=== PATIENT | male | born 1945 | race Caucasian/White ===

== ENCOUNTER → 2023-04-15 14:35 | Outpatient (CLI) | payer MEDICARE, SELFPAY ==
[2023-04-15 17:26] LABS: BUN Creatinine Ratio 32.4 (6-22); Blood Urea Nitrogen 33 mg/dL (9-20); Calcium 9.5 mg/dL (8.4-10.2); Carbon Dioxide 28 mmol/L (22-32); Chloride 103 mmol/L (98-107); Estimated Glomerular Filt Rate > 60 mL/min (>60); Glucose 93 mg/dL (80-110); HEMOLYSIS < 15 (0-50); Potassium 4.2 mmol/L (3.4-5.1); Sodium 139 mmol/L (137-145)
[2023-04-15 17:29] LABS: Add Manual Diff / Slide Review NO; Basophils Absolute Auto 100 /uL (0-100); Basophils Percent Auto 2.4 % (0-2); Eosinophils Absolute Auto 100 /uL (0-450); Eosinophils Percent Auto 2.7 % (2-4); Hematocrit 44.4 % (41-53); Hemoglobin 14.8 g/dL (13.5-17.5); Lymphocytes Absolute Auto 1500 /uL (1100-4500); Mean Corpuscular HGB Conc 33.4 % (30-36); Mean Corpuscular Volume 92.9 fL (80-100); Monocytes Absolute Auto 700 /uL (0-900); Monocytes Percent Auto 14.4 % (3-14); Neutrophils Absolute Auto 2300 /uL (1500-7000); Neutrophils Percent Auto 48.5 % (50-75); Platelet Count 242 X10^3/uL (150-400); Red Blood Cell Count 4.77 X10^6/uL (4.5-5.9); Red Cell Distribution Width 14.5 % (11.6-14.8); White Blood Cell Count 4.8 X10^3/uL (4.5-11.0)
== END ==
PROVIDERS: PCP Family Medicine; Referring Provider Nurse Practitioner Acute Care; Visit Provider Nurse Practitioner Acute Care
DX: I42.9 Cardiomyopathy, unspecified (principal)
CPT/HCPCS: 36415; 80048; 85025

== ENCOUNTER → 2024-04-23 13:54 | Outpatient (CLI) | payer OTHER, SELFPAY ==
--- NOTE | 2024-04-23 13:58 | DI.ECHO.S_ITS ---
[facility]---------+ [facility] : : [address] : : [place] : : [id number] : : Phone: [phone] Echocardiogram Report + + :Name: REILLY GRESHMA Study Date: 04/23/2024 Height: 71 in : :Hospital ReadingLocation: Weight: 155 lb : : Gender: Male BSA: 1.9 m2 : :: 1945 Age: 78 yrs BP: 101/67 mmHg: :Reason For Study: ISCHEMIC HEART DISEASE : :Ordering Physician: CARLOS, : :RAE Performed By: Jaysno Jain : :Referring: RAE GONZALEZ : + + Interpretation Summary The left ventricle is mildly dilated. The ejection fraction is estimated to be 15-20%. Diastolic function could not be accurately assessed due to unobtainable data. The left atrium is mildly dilated. The right ventricle is mildly dilated. Right ventricular systolic function is moderately reduced. There is mild to moderate mitral regurgitation. There is mild tricuspid regurgitation. The right ventricular systolic pressure is estimated to be at least 28 mmHg based on an estimated right atrial pressure of 3 mm Hg. Compared to the prior study dated 06/04/2023, no significant change other than a decrease in the left ventricular end-diastolic diameter. Procedure: A two-dimensional transthoracic echocardiogram with color flow and Doppler was performed. A contrast injection of Definity was performed to improve assessment of LV function. The study quality was technically good. Comparison is made with the echocardiogram of 06/04/2023. The patient was in normal sinus rhythm during the exam. Left Ventricle: There is normal left ventricular wall thickness. The left ventricle is mildly dilated. There is no ventricular septal defect visualized. The ejection fraction is estimated to be 15-20%. There is severe global hypokinesis of the left ventricle. Diastolic function could not be accurately assessed due to unobtainable data. Right Ventricle: The right ventricle is mildly dilated. There is an ICD wire in the RV. Right ventricular systolic function is moderately reduced. Atria: The left atrium is mildly dilated. Right atrial size is normal. There is no Doppler evidence for an atrial septal defect. Mitral Valve: The mitral valve is normal. There is mild to moderate mitral regurgitation. Aortic Valve: The aortic valve is trileaflet. The aortic valve opens well. There is no aortic valve stenosis. No aortic regurgitation is present. Tricuspid Valve: The tricuspid valve is normal. There is mild tricuspid regurgitation. The right ventricular systolic pressure is estimated to be at least 28 mmHg based on an estimated right atrial pressure of 3 mm Hg. Pulmonic Valve: The pulmonic valve is normal in structure and function. There is trace pulmonic regurgitation. Great Vessels: The aortic root is normal size. The dimensions of the ascending aorta are normal. The pulmonary artery is normal size. The IVC is of normal diameter and collapses greater than 50% with a sniff. This suggests a low right atrial pressure of 3 mm Hg. Pericardium/ Pleura There is no pericardial effusion. There is no pleural effusion. MMode/2D Measurements & Calculations LVIDd: 5.9 cm LVOT diam: 2.3 cm LVIDs: 5.1 cm Ao root diam: 3.2 cm FS: 12.8 % asc Aorta Diam: 2.9 cm IVSd: 1.1 cm LVPWd: 0.89 cm LV mg. diameter/BSA (cm/m^2): 3.1 LV sys. diameter/BSA (cm/m^2): 2.7 LA A2 area: 23.8 cm2 RA long axis: 4.6 cm LA A4 area: 22.8 cm2 RA area: 14.8 cm2 LA length (vol): 6.6 cm RA vol: 40.3 ml LA vol: 69.5 ml RA : 21.3 ml/m2 LA vol index: 36.8 ml/m2 IVC diam: 1.2 cm RVD1 (basal): 4.1 cm RVD2 (mid): 4.0 cm Doppler Measurements & Calculations Ao V2 max: 82.9 cm/sec MV E max maycol: 101.0 cm/sec Ao V2 mean: 64.7 cm/sec MV A max maycol: 22.9 cm/sec Ao max P.7 mmHg MV E/A: 4.4 Ao mean P.8 mmHg Med Peak E' Maycol: 1.9 cm/sec Ao V2 VTI: 18.5 cm E/E' med: 52.6 Lat Peak E' Maycol: 3.0 cm/sec E/E' lat: 33.5 E/e' average: 43.0 MV dec time: 0.15 sec TR max maycol: 252.6 cm/sec TR max P.5 mmHg PA V2 max: 44.4 cm/sec PA V2 mean: 29.0 cm/sec PA mean P.39 mmHg PA pr(Accel): 31.0 mmHg Reading Physician:05:02 PM
--- NOTE | 2024-04-23 14:21 | EKG_ITS ---
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
[2024-04-23 15:34] LABS: Add Manual Diff / Slide Review NO; Basophils Absolute Auto 100 /uL (0-100); Eosinophils Absolute Auto 100 /uL (0-450); Eosinophils Percent Auto 1.1 % (2-4); Hematocrit 50.8 % (41-53); Hemoglobin 17.1 g/dL (13.5-17.5); Lymphocytes Absolute Auto 2200 /uL (1100-4500); Mean Corpuscular HGB Conc 33.6 % (30-36); Mean Corpuscular Hemoglobin 31.5 PG (26-34); Mean Corpuscular Volume 93.9 fL (80-100); Monocytes Absolute Auto 900 /uL (0-900); Monocytes Percent Auto 12.1 % (3-14); Neutrophils Absolute Auto 4000 /uL (1500-7000); Neutrophils Percent Auto 54.8 % (50-75); Platelet Count 248 X10^3/uL (150-400); Red Blood Cell Count 5.41 X10^6/uL (4.5-5.9); Red Cell Distribution Width 14.4 % (11.6-14.8); White Blood Cell Count 7.2 X10^3/uL (4.5-11.0)
[2024-04-23 15:51] LABS: Alanine Aminotransferase 24 IU/L (<50); Albumin 4.4 g/dL (3.5-5.0); Albumin Globulin Ratio 1.7 (1.0-2.8); Alkaline Phosphatase 40 U/L (38-126); Aspartate Aminotransferase 38 IU/L (17-59); BUN Creatinine Ratio 27.5 (6-22); Bilirubin Total 1.3 mg/dL (0.2-1.3); Blood Urea Nitrogen 28 mg/dL (9-20); Calcium 9.9 mg/dL (8.4-10.2); Carbon Dioxide 26 mmol/L (22-32); Chloride 102 mmol/L (98-107); Estimated Glomerular Filt Rate > 60 mL/min (>60); Globulin 2.6 g/dL (1.7-4.1); Glucose 96 mg/dL (80-110); HEMOLYSIS < 15 (0-50); Potassium 4.7 mmol/L (3.4-5.1); Sodium 138 mmol/L (137-145)
[2024-04-23 16:10] LABS: Free T3, Triiodothyronine Free 3.97 pg/mL (2.77-5.27); T4 Total Thyroxine 8.03 ug/dL (5.5-11.0)
== END ==
LOC: ECHO 13:56
PROVIDERS: PCP Family Medicine; Referring Provider Chiropractor; Visit Provider Chiropractor
DX: I08.1 Rheumatic disorders of both mitral and tricuspid valves (principal); I25.9 Chronic ischemic heart disease, unspecified; E20.9 Hypoparathyroidism, unspecified
CPT/HCPCS: 36415; 80053; 84436; 84443; 84481; 85025; 93005; C8929; Q9957